=== PATIENT | female | born 1960 | race Caucasian/White ===

== ENCOUNTER 2020-05-02 15:13 | Emergency (ER) | payer OTHER ==
[~2020-05-02 15:13] MED LIST: ASPIRIN325 MG PO; CALCIUM + D3 E1 EACH PO; CIPRO500 MG PO; CRUTCH1 EACH; ESSENTIAL DAIL1 EACH PO; FLAGYL500 MG PO; IRON18 MG PO; NORCO 5-325 TA1 EACH PO; PEPCID20 MG PO; PRILOSEC20 MG PO; TYLENOL325 MG PO; WELLBUTRIN XL300 MG PO; ZOFRAN8 MG PO; [UNRECOGNIZED DRUG - OTHER] PO
[2020-05-02] MEDS ORDERED: OXYBUTYNIN CHLOR5 M1 PO (15:25)
[2020-05-02] MEDS ORDERED: ATORVASTATIN CA40 MG PO (15:25)
[2020-05-02] MEDS ORDERED: SUMATRIPTAN SU100 MG PO (15:26)
[2020-05-02] MEDS ORDERED: METOPROLOL SUCC50 MG PO (15:27)
[2020-05-02] MEDS ORDERED: BUPROPION XL150 MG PO (15:27)
[2020-05-02] MEDS ORDERED: FLUTICASONE PRO16 GM NAS (15:27)
[2020-05-02] MEDS ORDERED: ESCITALOPRAM OX10 MG PO (15:28)
--- NOTE | 2020-05-03 19:13 | EKG ---
[facility] [address] [place] [address] Signed Normal sinus rhythm Normal ECG When compared with ECG of 20-FEB-2019 10:04, Nonspecific T wave abnormality now evident in Inferior leads Confirmed by RADHIKA RANGEL MD ([id number] on 05/03/2020 7:13:05 PM Electronically Signed By: RADHIKA RANGEL MD 05/03/201912 PATIENT NAME: ANATOLYHESHAMVERNA Electrocardiogram DATE OF : 58 PHYSICIAN: RADHIKA RANGEL MD REPORT #: [id number] REPORT IS CONFIDENTIAL AND NOT TO BE RELEASED WITHOUT AUTHORIZATION
== END 2020-05-02 18:39 | disposition home or self-care (01) ==
LOC: ED 15:13
DX: S70.12XA Contusion of left thigh, initial encounter (principal); D64.9 Anemia, unspecified; K21.9 Gastro-esophageal reflux disease without esophagitis; Z88.2 Allergy status to sulfonamides; Z79.899 Other long term (current) drug therapy; Z79.82 Long term (current) use of aspirin; W01.0XXA Fall on same level from slipping, tripping and stumbling without subsequent striking against object, initial encounter
CPT/HCPCS: 80053; 84484; 85025; 93005; 93010; 99284-25